=== PATIENT | female | born 1940 | race Hispanic/Latino ===

== ENCOUNTER 2016-10-09 13:59 | Observation (INO) | payer MEDICARE ==
[2016-10-09] MEDS ORDERED: Sodium Chloride 0.9% 500 ML IV ONE (14:31)
--- NOTE | 2016-10-09 14:36 | ED PDOC ---
Arrival/HPI - General Chief Complaint: Abdominal Pain Time Seen by Provider: 10/09/16 14:20 Historian: Patient - History of Present Illness Narrative History of Present Illness (Text): 10/09/16 14:22 Khushboo Sams is a 76 year old female, whose past medical history includes endometriosis, spinal stenosis, and A fib, who presents to the emergency department complaining of worsening lower abdominal pain for 1 week. Patient states that she has had these symptoms intermittently for years but they did not worsen until 1 week ago. Patient also indicates that she experiences associated lower back pain and a significant decrease in appetite. Patient spoke to PMD, Dr. Baig, this morning who directed to patient to emergency department. Patient denies any past abdominal surgeries, nausea, vomiting diarrhea, urinary symptoms, fever, chest pain, shortness of breath, or any other complaint at this time. PMD: Dr. Baig Time/Duration: 1 week Symptom Onset: Gradual Symptom Course: Worsening Severity Level: Mild Activities at Onset: Rest Context: Home Associated Symptoms (Text): 10/09/16 15:11 Chronic abdominal pain for years. Over the last week her lower abdominal pain has become worse. It is now localized in the left lower quadrant. No nausea vomiting or diarrhea. Poor appetite. No fever or chills. No genitourinary symptoms. It radiates into her back. Past Medical History - Provider Review Nursing Documentation Reviewed: Yes - Infectious Disease Hx of Infectious Diseases: None - Tetanus Immunization Tetanus Immunization: Unknown - Cardiac Hx Cardiac Arrhythmia: Yes (afib) Hx Hypertension: Yes Hx Pacemaker: No - Pulmonary Hx Respiratory Disorders: No - Neurological Hx Paralysis: No - HEENT Hx HEENT Disorder: (WEARS RX GLASSES,TONSILLECTOMY) Hx Macular Degeneration: Yes - Renal Hx Renal Disorder: No - Endocrine/Metabolic Hx Hypothyroidism: Yes - Hematological/Oncological Hx Blood Transfusions: No - Integumentary Hx Dermatological Disorder: Yes Hx Melanoma: Yes (HANDS,FACE) - Musculoskeletal/Rheumatological Hx Musculoskeletal Disorders: Yes Hx Spinal Stenosis: Yes - Gastrointestinal Hx Gastrointestinal Disorders: Yes - Genitourinary/Gynecological Hx Genitourinary Disorders: No - Psychiatric Hx Emotional Abuse: No Hx Physical Abuse: No Hx Substance Use: No - Anesthesia Hx Anesthesia: Yes Hx Anesthesia Reactions: No Hx Malignant Hyperthermia: No - Suicidal Assessment Feels Threatened In Home Enviroment: No Family/Social History - Physician Review Nursing Documentation Reviewed: Yes Family/Social History: No Known Family HX Smoking Status: Former Smoker Hx Alcohol Use: No Hx Substance Use: No Hx Substance Use Treatment: No Allergies/Home Meds Allergies/Adverse Reactions: Allergies No Known Allergies Allergy (Verified 10/09/16 14:05) Home Medications: Home Meds Medication Instructions Recorded Confirmed Ezetimibe [Zetia] 10 mg PO DAILY 10/05/11 10/09/16 Warfarin [Coumadin] 5 mg PO DAILY 10/05/11 10/09/16 Vitamin D 2,000 iu PO 2XW 11/17/13 10/09/16 Irbesartan [Avapro] 300 mg PO DAILY 08/18/14 10/09/16 Levothyroxine Sodium [Synthroid] 75 mcg PO DAILY 08/18/14 10/09/16 Review of Systems - Physician Review All systems were reviewed & negative as marked: Yes - Review of Systems Constitutional: absent: Fevers, Night Sweats Eyes: absent: Vision Changes ENT: absent: Hearing Changes Respiratory: absent: SOB, Cough Cardiovascular: absent: Chest Pain Gastrointestinal: Abdominal Pain, Appetite Changes. absent: Diarrhea, Nausea, Vomiting Genitourinary Female: absent: Dysuria, Frequency, Hematuria, Urine Output Changes Musculoskeletal: Back Pain. absent: Arthralgias, Neck Pain Skin: absent: Rash, Pruritis Neurological: absent: Headache, Dizziness Endocrine: absent: Diaphoresis Hemo/Lymphatic: absent: Adenopathy Psychiatric: absent: Depression Physical Exam Vital Signs Reviewed: Yes Vital Signs Temp Pulse Resp BP Pulse Ox 10/09/16 15:03 89 18 158/89 H 98 10/09/16 14:07 97.9 F 97 H 17 166/92 H 99 Temperature: Afebrile Blood Pressure: Hypertensive Pulse: Regular Respiratory Rate: Normal Appearance: Positive for: Well-Appearing, Non-Toxic, Uncomfortable Pain Distress: Mild Mental Status: Positive for: Alert and Oriented X 3 - Systems Exam Head: Present: Atraumatic, Normocephalic Pupils: Present: PERRL Extroacular Muscles: Present: EOMI Conjunctiva: Present: Normal Mouth: Present: Moist Mucous Membranes Pharnyx: No: ERYTHEMA, EXUDATE, TONSILS ENLARGED Neck: Present: Normal Range of Motion Respiratory/Chest: Present: Clear to Auscultation, Good Air Exchange, Decreased Breath Sounds. No: Respiratory Distress, Accessory Muscle Use Cardiovascular: Present: Irregular Rhythm (Irregularly irregular, normal rate) Abdomen: Present: Tenderness (Mild LLQ tenderness). No: Rebound, Guarding Back: Present: Normal Inspection. No: CVA Tenderness, Midline Tenderness Upper Extremity: Present: Normal Inspection. No: Cyanosis, Edema Lower Extremity: Present: Normal Inspection. No: Edema Neurological: Present: GCS=15, CN II-XII Intact, Speech Normal, Motor Func Grossly Intact Skin: Present: Warm, Dry, Normal Color. No: Rashes Psychiatric: Present: Alert, Oriented x 3, Normal Insight, Normal Concentration Medical Decision Making ED Course and Treatment: 10/09/16 14:22 Impression: 76 year old female complaining of lower abdominal pain for 1 week. Plan: -- EKG -- Chest x-ray -- Abdomen and Pelvis CT w/o contrast -- Urinalysis -- Labs -- Pepcid, Toradol, and IV fluids -- Reassess and disposition Prior Visits: Notes and results from previous visits were reviewed. Patient last seen in the ED on 08/18/14 for worsening left ear pain for a month. Patient was discharged home. Progress Notes: 10/09/16 15:12 EKG shows atrial fibrillation rate approximately [address] and T- wave changes and no acute changes 10/09/16 15:52 CT scan of the abdomen and pelvis is read by the radiologist as positive for diverticulitis with no abscess - Lab Interpretations Lab Results: 10/09/16 14:45 10/09/16 14:45 Lab Results 10/09/16 14:45: Sodium 141, Potassium 3.8, Chloride 105, Carbon Dioxide 26, Anion Gap 14, BUN 21, Creatinine 0.9, Est GFR ( Amer) > 60, Est GFR (Non- Af Amer) > 60, Random Glucose 91, Calcium 9.6, Total Bilirubin 1.6 H, AST 30, ALT 36, Alkaline Phosphatase 84, Lactate Dehydrogenase 393, Total Creatine Kinase 69, Troponin I < 0.01, Total Protein 7.9, Albumin 4.6, Globulin 3.3, Albumin/Globulin Ratio 1.4, Amylase 166 H, Lipase 150 10/09/16 14:45: PT 26.2 H, INR 2.43 H, APTT 37.5 H 10/09/16 14:45: WBC 13.2 H D, RBC 5.14, Hgb 14.8, Hct 44.4, MCV 86.4, MCH 28.8, MCHC 33.3, RDW 13.8, Plt Count 264, MPV 10.7, Gran % 83.4 H, Lymph % (Auto) 11.1 L, [place] % (Auto) 4.9, Eos % (Auto) 0.3 L, Baso % (Auto) 0.3, Gran # 10.99 H , Lymph # 1.5, [place] # 0.7 H, Eos # 0.0, Baso # 0.04 I have reviewed the lab results: Yes - RAD Interpretation Radiology Orders: 10/09/16 14:29 ABD & PELVIS W/O PO OR IV CONT [CT] Stat 10/09/16 14:30 CHEST ONE VIEW [RAD] Stat Chest 1 view shows no infiltrate effusion or cardiomegaly Mold 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: ED Physician - Medication Orders Current Medication Orders: Ciprofloxacin (Cipro 400mg/200ml Dsw) 400 mg in 200 mls @ 133.3 mls/hr IVPB STAT STA PRN Reason: Protocol Stop: 10/09/16 17:15 Metronidazole (Flagyl) 500 mg in 100 mls @ 100 mls/hr IVPB STAT STA PRN Reason: Protocol Stop: 10/09/16 16:45 Discontinued Medications Famotidine (Pepcid) 20 mg IVP STAT STA Stop: 10/09/16 14:30 Last Admin: 10/09/16 14:43 Dose: 20 mg Sodium Chloride (Sodium Chloride 0.9%) 500 mls @ 500 mls/hr IV ONCE ONE Stop: 10/09/16 15:30 Last Admin: 10/09/16 14:43 Dose: 500 mls/hr Ketorolac Tromethamine (Toradol) 15 mg IVP STAT STA Stop: 10/09/16 14:30 Last Admin: 10/09/16 14:54 Dose: 15 mg - Scribe Statement The provider has reviewed the documentation as recorded by the Chrissyibe Monserrat Bustamante Provider Scribe Attestation: All medical record entries made by the Scribe were at my direction and personally dictated by me. I have reviewed the chart and agree that the record accurately reflects my personal performance of the history, physical exam, medical decision making, and the department course for this patient. I have also personally directed, reviewed, and agree with the discharge instructions and disposition. Disposition/Present on Arrival - Present on Arrival Any Indicators Present on Arrival: No History of DVT/PE: No History of Uncontrolled Diabetes: No Urinary Catheter: No History of Decub. Ulcer: No History Surgical Site Infection Following: None - Disposition Have Diagnosis and Disposition been Completed?: Yes Diagnosis: Diverticulitis Disposition: HOSPITALIZED Disposition Time: 15:52 Patient Plan: Observation Condition: GOOD Referrals: Mynor Baig MD [Primary Care Provider] - Follow up with primary
[2016-10-09 15:00] LABS: ADD MANUAL DIFF? NO
[2016-10-09 15:11] LABS: BASO # 0.04 K/mm3 (0.0-2.0); BASO % 0.3 % (0.0-3.0); EOS % 0.3 % (1.5-5.0); GRAN # 10.99 (1.4-6.5); GRAN % 83.4 % (50.0-68.0); HEMATOCRIT 44.4 % (36.0-48.0); LYMPH # 1.5 (1.2-3.4); LYMPH % 11.1 % (22.0-35.0); MEAN CELL VOLUME 86.4 fL (80.0-105.0); MEAN CORPUSCULAR HEMOGLOBIN 28.8 pg (25.0-35.0); MEAN CORPUSCULAR HGB CONC 33.3 g/dl (31.0-37.0); MEAN PLATELET VOLUME 10.7 fl (7.0-11.0); MONO # 0.7 (0.1-0.6); MONO % 4.9 % (1.0-6.0); PLATELET COUNT 264 10^3/uL (120.0-450.0); RED CELL DISTRIBUTION WIDTH 13.8 % (11.5-14.5); WHITE BLOOD COUNT 13.2 10^3/ul (4.5-11.0)
[2016-10-09 15:13] LABS: ALB/GLOB RATIO 1.4 (1.1-1.8); ALKALINE PHOSPHATASE 84 U/L (38-133); ALT/SGPT 36 U/L (7-56); AMYLASE 166 U/L (35-125); AST/SGOT 30 U/L (15-39); BILIRUBIN,TOTAL 1.6 mg/dL (0.2-1.3); BLOOD UREA NITROGEN 21 mg/dL (7-21); CALCIUM 9.6 mg/dL (8.4-10.5); CARBON DIOXIDE 26 mmol/L (21-33); CHLORIDE 105 mmol/L (98-107); GFR AFRICAN-AMERICAN > 60; GLUCOSE,RANDOM 91 mg/dL (70-110); LIPASE 150 U/L (23-300); POTASSIUM 3.8 mmol/L (3.6-5.0); SODIUM 141 mmol/L (132-148); TOTAL PROTEIN 7.9 g/dL (5.8-8.3)
[2016-10-09 15:17] LABS: INR 2.43 (0.93-1.08); PARTIAL THROMBOPLASTIN TIME 37.5 Seconds (23.7-30.8)
[2016-10-09 15:25] LABS: TROPONIN I < 0.01 ng/mL
--- NOTE | 2016-10-09 15:43 | CT ---
PROCEDURE: CT Abdomen and Pelvis without intravenous contrast HISTORY: Left lower quadrant pain COMPARISON: 01/10/2014 TECHNIQUE: CT scan of the abdomen and pelvis was performed without administration of oral or intravenous contrast. Coronal and sagittal reformatted images were obtained. Radiation dose: Total exam DLP = 548.76 mGy-cm. This CT exam was performed using one or more of the following dose reduction techniques: Automated exposure control, adjustment of the mA and/or kV according to patient size, and/or use of iterative reconstruction technique. FINDINGS: LOWER THORAX: There is subsegmental atelectasis in the right middle lobe and lingula. There is linear atelectasis/scarring in the left lower lobe. LIVER: The liver is normal in size. No gross lesion or ductal dilatation. GALLBLADDER AND BILE DUCTS: There are no calcified gallstones, wall thickening or pericholecystic fluid. PANCREAS: The pancreas is normal in size. No gross lesion or ductal dilatation. SPLEEN: The spleen is normal in size. ADRENALS: Both adrenal glands are normal in size without discrete nodule. KIDNEYS AND URETERS: Both kidneys are normal in size without hydronephrosis or nephrolithiasis. VASCULATURE: No aortic aneurysm. BOWEL: The small bowel loops are normal in caliber. Again seen is left colonic and sigmoid diverticulosis. There is moderate circumferential mural thickening in the sigmoid colon with significant pericolonic inflammatory changes. There is no evidence of microperforation or abscess. APPENDIX: Normal appendix. PERITONEUM: No free intraperitoneal air. There is moderate free fluid in the pelvis. LYMPH NODES: No enlarged lymph nodes. BLADDER: Unremarkable. REPRODUCTIVE: The uterus is normal in size. There is a calcified fibroid in the posterior wall. There are coarse calcifications in both adnexa. BONES: No acute fracture. Diffuse bone demineralization and multilevel degenerative disc disease. Mild dextroscoliosis in the lumbar spine. OTHER FINDINGS: None. IMPRESSION: Acute sigmoid diverticulitis. No evidence of perforation or abscess. Moderate free fluid in the pelvis. Additional comments as described above.
[2016-10-09] MEDS ORDERED: Ciprofloxacin 400mg/200ml D5W 400 MG/200 ML BAG IVPB STA (15:45)
--- NOTE | 2016-10-09 15:45 | RAD ---
PROCEDURE: CHEST RADIOGRAPH, 1 VIEW HISTORY: ap COMPARISON: 07/30/2013 FINDINGS: LUNGS: The lungs are well inflated and clear. PLEURA: No pneumothorax or pleural fluid seen. CARDIOVASCULAR: Normal. OSSEOUS STRUCTURES: No significant abnormalities. VISUALIZED UPPER ABDOMEN: Normal. OTHER FINDINGS: None. IMPRESSION: No active pulmonary disease.
[2016-10-09] MEDS ORDERED: metroNIDAZOLE IV 500 mg/100 ml 500 MG/100 ML BAG IVPB STA (15:46)
[2016-10-09 16:10] LABS: URINE BILIRUBIN NEGATIVE (NEGATIVE); URINE BLOOD SMALL (NEGATIVE); URINE GLUCOSE (UA) NEGATIVE (NEGATIVE); URINE KETONE TRACE mg/dL (NEGATIVE); URINE LEUKOCYTE ESTERASE NEGATIVE Leu/uL (NEGATIVE); URINE PROTEIN NEGATIVE mg/dL (<30 mg/dL); URINE UROBILINOGEN 0.2 E.U./dL (<1 E.U./dL)
[2016-10-09 16:22] LABS: URINE APPEARANCE CLEAR (CLEAR); URINE COLOR LIGHT YELLOW (YELLOW)
[2016-10-09 16:29] LABS: URINE BACTERIA SMALL (NEG); URINE WBC 0 - 2 /hpf (0-6)
--- NOTE | 2016-10-09 17:00 | CP.PCM.HP ---
<Jeromy Nicholson - Last Filed: 10/09/16 18:16> History of Present Illness - History of Present Illness History of Present Illness: H&P: Dr. Olivia CC: Abdominal Pain 76yo F with PMHx of Endometriosis, Spinal Stenosis, Hypothyroidism, Atrial Fib on Warfarin, Macular Degeneration, HTN, HLD here for evaluation of abdominal pain. Pain started 3 days ago and slowly became worse. Located in the LLQ, lower abdomen and radiates to the right lower back. Associated with decreased appetite. Described as a crampy pain. Not associated with food intake. Has had similar pain in the past. Denies any N/V/D. Denies having any constipation, has regular bowel movements once a day. Denies any changes in stool caliber. No dark , tarry or bloody stool. Denies any chest pain, no SOB. No Headaches. No urinary changes. Denies any fever or chills. Has had similar episodes in the past and was diagnosed with diverticulitis, resolved with antibiotics at the time. No sick contacts. Last colonoscopy done in 2003, showed diverticulosis. Last EGD done in 2003. GI: Has seen Dr. Morris in the past, has recently switched to a new GI as out- patient. Requests Dr. Gonzalez during this admission. PMD: Dr. Baig PMHx: Endometriosis, Spinal Stenosis, Hypothyroidism, Atrial Fib, Macular Degeneration, HTN, HLD PSHx: Tonsilectomy, R breast nodule (benign) Family Hx: HTN Social Hx: Lives at home with daughter in 2 family home. Denies Tobacco, denies ETOH, denies any illicit drugs NKDA Meds: Vit D, Synthroid 75mcg daily, Warfarin 5mg PO daily, Zetia, Avapro Present on Admission - Present on Admission Any Indicators Present on Admission: No Review of Systems - Review of Systems All systems: reviewed and no additional remarkable complaints except - Constitutional Constitutional: absent: Chills, Fever - EENT Eyes: absent: Blurred Vision Ears: absent: Dizziness Nose/Mouth/Throat: absent: Epistaxis - Cardiovascular Cardiovascular: absent: Chest Pain, Diaphoresis, Dyspnea - Respiratory Respiratory: absent: Cough, Dyspnea - Gastrointestinal Gastrointestinal: Abdominal Pain. absent: Change in Bowel Habits, Change in Stool Character, Constipation, Diarrhea, Hematochezia, Melena, Nausea, Vomiting - Genitourinary Genitourinary: absent: Difficulty Urinating, Dysuria, Urinary Incontinence, Urinary Frequency - Musculoskeletal Musculoskeletal: Back Pain - Neurological Neurological: absent: Dizziness, Weakness - Psychiatric Psychiatric: absent: Anxiety, Depression Past Patient History - Infectious Disease Hx of Infectious Diseases: None - Tetanus Immunizations Tetanus Immunization: Unknown - Past Social History Smoking Status: Former Smoker - CARDIAC Hx Cardia Arrhythmia: Yes (afib) Hx Hypertension: Yes Hx Pacemaker: No - PULMONARY Hx Respiratory Disorders: No - NEUROLOGICAL Hx Paralysis: No - HEENT Hx HEENT Problems: (WEARS RX GLASSES,TONSILLECTOMY) Hx Macular Degeneration: Yes - RENAL Hx Chronic Kidney Disease: No - ENDOCRINE/METABOLIC Hx Hypothyroidism: Yes - HEMATOLOGICAL/ONCOLOGICAL Hx Blood Transfusions: No - INTEGUMENTARY Hx Dermatological Problems: Yes Hx Melanoma: Yes (HANDS,FACE) - MUSCULOSKELETAL/RHEUMATOLOGICAL Hx Musculoskeletal Disorders: Yes Hx Spinal Stenosis: Yes - GASTROINTESTINAL Hx Gastrointestinal Disorders: Yes - GENITOURINARY/GYNECOLOGICAL Hx Genitourinary Disorders: No - PSYCHIATRIC Hx Emotional Abuse: No Hx Physical Abuse: No Hx Substance Use: No - SURGICAL HISTORY Hx Surgeries: Yes - ANESTHESIA Hx Anesthesia: Yes Hx Anesthesia Reactions: No Hx Malignant Hyperthermia: No Meds Allergies/Adverse Reactions: Allergies Allergy/AdvReac Type Severity Reaction Status Date / Time No Known Allergies Allergy Verified 10/09/16 14:05 Physical Exam - Constitutional Appears: Well, No Acute Distress - Head Exam Head Exam: ATRAUMATIC, NORMAL INSPECTION, NORMOCEPHALIC - Eye Exam Eye Exam: EOMI, Normal appearance, PERRL. absent: Scleral icterus - ENT Exam ENT Exam: Mucous Membranes Moist - Neck Exam Neck exam: Positive for: Normal Inspection - Respiratory Exam Respiratory Exam: Clear to Auscultation Bilateral, NORMAL BREATHING PATTERN. absent: Accessory Muscle Use, Decreased Breath Sounds, Rales, Rhonchi, Wheezes, Respiratory Distress - Cardiovascular Exam Cardiovascular Exam: Irregular Rhythm, +S1, +S2. absent: JVD - GI/Abdominal Exam GI & Abdominal Exam: Normal Bowel Sounds, Soft, Tenderness (LLQ). absent: Distended, Firm, Guarding, Rebound, Rigid - Extremities Exam Extremities exam: Positive for: normal inspection, pedal pulses present. Negative for: calf tenderness, pedal edema - Back Exam Back exam: NORMAL INSPECTION. absent: CVA tenderness (L), CVA tenderness (R) - Neurological Exam Neurological exam: Alert, Oriented x3 - Psychiatric Exam Psychiatric exam: Normal Affect, Normal Mood - Skin Skin Exam: Dry, Intact, Normal Color, Warm Results - Vital Signs Recent Vital Signs: Last Vital Signs Temp 97.9 F 10/09/16 14:07 Pulse 79 10/09/16 16:46 Resp 18 10/09/16 16:46 BP 155/79 H 10/09/16 16:46 Pulse Ox 98 10/09/16 16:46 - Labs Result Diagrams: 10/09/16 14:45 10/09/16 14:45 Labs: Laboratory Results - last 24 hr 10/09/16 10/09/16 10/09/16 14:45 14:45 14:45 WBC 13.2 H D RBC 5.14 Hgb 14.8 Hct 44.4 MCV 86.4 MCH 28.8 MCHC 33.3 RDW 13.8 Plt Count 264 MPV 10.7 Gran % 83.4 H Lymph % (Auto) 11.1 L [place] % (Auto) 4.9 Eos % (Auto) 0.3 L Baso % (Auto) 0.3 Gran # 10.99 H Lymph # 1.5 [place] # 0.7 H Eos # 0.0 Baso # 0.04 PT 26.2 H INR 2.43 H APTT 37.5 H Sodium 141 Potassium 3.8 Chloride 105 Carbon Dioxide 26 Anion Gap 14 BUN 21 Creatinine 0.9 Est GFR ( Amer) > 60 Est GFR (Non-Af Amer) > 60 Random Glucose 91 Calcium 9.6 Total Bilirubin 1.6 H AST 30 ALT 36 Alkaline Phosphatase 84 Lactate Dehydrogenase 393 Total Creatine Kinase 69 Troponin I < 0.01 Total Protein 7.9 Albumin 4.6 Globulin 3.3 Albumin/Globulin Ratio 1.4 Amylase 166 H Lipase 150 Urine Color Urine Appearance Urine pH Ur Specific [place] Urine Protein Urine Glucose (UA) Urine Ketones Urine Blood Urine Nitrate Urine Bilirubin Urine Urobilinogen Ur Leukocyte Esterase Urine RBC Urine WBC Ur Epithelial Cells Urine Bacteria 10/09/16 15:53 WBC RBC Hgb Hct MCV MCH MCHC RDW Plt Count MPV Gran % Lymph % (Auto) [place] % (Auto) Eos % (Auto) Baso % (Auto) Gran # Lymph # [place] # Eos # Baso # PT INR APTT Sodium Potassium Chloride Carbon Dioxide Anion Gap BUN Creatinine Est GFR ( Amer) Est GFR (Non-Af Amer) Random Glucose Calcium Total Bilirubin AST ALT Alkaline Phosphatase Lactate Dehydrogenase Total Creatine Kinase Troponin I Total Protein Albumin Globulin Albumin/Globulin Ratio Amylase Lipase Urine Color Light yellow Urine Appearance Clear Urine pH 6.0 Ur Specific [place] 1.010 Urine Protein Negative Urine Glucose (UA) Negative Urine Ketones Trace H Urine Blood Small H Urine Nitrate Negative Urine Bilirubin Negative Urine Urobilinogen 0.2 Ur Leukocyte Esterase Negative Urine RBC 2 - 5 Urine WBC 0 - 2 Ur Epithelial Cells 1 - 3 Urine Bacteria Small Assessment & Plan - Assessment and Plan (Free Text) Assessment: 76yo F with PMHx of Endometriosis, spinal stenosis, AFib on warfarin, HTN, Hypothyroidism, HLD, Maccular degeneration, diverticulosis here for acute sigmoid diverticulitis 1. Acute Sigmoid diverticulitis Mild leukocytosis afebrile CT Abd - evidence of acute sigmoid diverticulitis. No plegmon, no free air IV abx: Rocephin, Flagyl Zofran prn Consult GI, Dr. Gonzalez, appreciate recs NPO for now NS @100 Pain management: Tylenol prn, Toradol prn f/u Blood cxs Dietitian referral 2. Hx of A Fib INR theraputic continue home warfarin 5mg Daily 3. Hx of HTN continue home meds Losartan 100mg PO Daily 4. Hx of HLD continue Zetia 5. Hx of Hypothyroid Continue home levothyroxine 6. PPx SCDs Protonix 40mg Daily Discussed case with Dr. Corwin Nicholson PGY1 <Ulices Olivia - Last Filed: 10/10/16 14:54> Results - Vital Signs Recent Vital Signs: Last Vital Signs Temp 98 F 10/10/16 07:58 Pulse 83 10/10/16 07:58 Resp 20 10/10/16 07:58 BP 137/64 10/10/16 07:58 Pulse Ox 97 10/10/16 07:58 - Labs Result Diagrams: 10/10/16 07:15 10/10/16 07:15 Labs: Laboratory Results - last 24 hr 10/10/16 10/10/16 10/10/16 07:15 07:15 07:15 WBC 8.3 D RBC 4.26 Hgb 12.0 Hct 36.2 MCV 85.0 MCH 28.2 MCHC 33.1 RDW 13.6 Plt Count 209 MPV 10.3 PT 36.9 H* INR 3.42 H Sodium 141 Potassium 3.5 L Chloride 111 H Carbon Dioxide 23 Anion Gap 11 BUN 16 Creatinine 0.8 Est GFR ( Amer) > 60 Est GFR (Non-Af Amer) > 60 Random Glucose 85 Calcium 8.8 Attending/Attestation - Attestation I have personally seen and examined this patient.: Yes I have fully participated in the care of the patient.: Yes I have reviewed all pertinent clinical information: Yes Notes (Text): 10/10/16 14:51 Attending note; Patient seen and examined with resident in ER. patient's daughter by the bedside. Patient is alert, awake and oriented. patient is is 76-year-old female with PMHx of chronic abdominal pain, Spinal Stenosis, Hypothyroidism, Atrial Fib on Warfarin, Macular Degeneration, HTN, HLD here for evaluation of abdominal pain. pain is mostly localized in the left lower quadrant. CT consistent with acute sigmoid diverticulitis. Nothing by mouth. Started on IV fluids. Started on IV Rocephin and Flagyl. Pain management with Toradol and Tylenol. GI evaluation requested. A. fib; rate controlled on Coumadin. INR is therapeutic. Case discussed [facility] patient's PMD Dr. Baig in detail. the diagnosis, treatment option discussed with patient in detail.
[2016-10-09] MEDS: Sodium Chloride 0.9% 1,000 ML IV SCH (17:29)
--- NOTE | 2016-10-09 18:48 | CARD ---
APPROVED REPORT EKG Measurement Heart [id number] <Conclusion> Atrial fibrillation Minimal voltage criteria for LVH, may be normal variant Nonspecific T wave abnormality, probably digitalis effect Prolonged QT Abnormal ECG
[2016-10-09 19:08] VITALS: BMI 27.4
[2016-10-09] MEDS ORDERED: Pneumococcal 23-Valent Vaccine IM ONE (19:09)
[2016-10-09] MEDS: metroNIDAZOLE IV 500 mg/100 ml 500 MG/100 ML BAG IVPB SCH (22:17)
[2016-10-10] MEDS: metroNIDAZOLE IV 500 mg/100 ml 500 MG/100 ML BAG IVPB SCH ×2 (05:53→14:08)
[2016-10-10] MEDS ORDERED: Levothyroxine 75 MCG TAB PO SCH (07:30)
[2016-10-10] MEDS ORDERED: Pantoprazole 40 mg EC Tab PO SCH (07:30)
[2016-10-10 07:46] LABS: HEMATOCRIT 36.2 % (36.0-48.0); MEAN CORPUSCULAR HEMOGLOBIN 28.2 pg (25.0-35.0); MEAN CORPUSCULAR HGB CONC 33.1 g/dl (31.0-37.0); MEAN PLATELET VOLUME 10.3 fl (7.0-11.0); RED CELL DISTRIBUTION WIDTH 13.6 % (11.5-14.5); WHITE BLOOD COUNT 8.3 10^3/ul (4.5-11.0)
[2016-10-10 07:48] LABS: INR 3.42 (0.93-1.08)
[2016-10-10 07:53] LABS: BLOOD UREA NITROGEN 16 mg/dL (7-21); CALCIUM 8.8 mg/dL (8.4-10.5); CARBON DIOXIDE 23 mmol/L (21-33); CHLORIDE 111 mmol/L (98-107); GFR AFRICAN-AMERICAN > 60; GLUCOSE,RANDOM 85 mg/dL (70-110); POTASSIUM 3.5 mmol/L (3.6-5.0); SODIUM 141 mmol/L (132-148)
[2016-10-10 07:58] VITALS: PULSE 83; RESP 20; TEMP 98
[2016-10-10] MEDS ORDERED: cefTRIAXone 1 gm 1 GM/100 ML BAG IVPB SCH (10:00)
[2016-10-10] MEDS ORDERED: Potassium Chloride 20 mEq ER Tab PO STA (10:18)
[2016-10-10] MEDS: Sodium Chloride 0.9% 1,000 ML IV SCH (14:10)
[2016-10-10 15:53] VITALS: BP 166/86; O2SAT 98
--- NOTE | 2016-10-10 16:18 | CP.PCM.PN ---
<Homa Newton - Last Filed: 10/10/16 16:11> Subjective - Date & Time of Evaluation Date of Evaluation: 10/10/16 Time of Evaluation: 16:12 - Subjective Subjective: HOSPITALISTS PROGRESS NOTE Pt is seen and examined at bedside. No acute events overnight. Patient states abdominal pain is improving. She tolerated liquid diet for breakfast and lunch. patient denies having any Cp, Sob, N/V, fevers or chills. Objective - Vital Signs/Intake and Output Vital Signs (last 24 hours): Temp Pulse Resp BP Pulse Ox 98 F 83 20 166/86 H 98 10/10/16 15:52 10/10/16 15:52 10/10/16 15:52 10/10/16 15:52 10/10/16 15:52 Intake and Output: 10/10/16 10/10/16 06:59 18:59 Intake Total 0 Balance 0 - Medications Medications: Current Medications Acetaminophen (Tylenol 325mg Tab) 650 mg PO Q4 PRN PRN Reason: Fever >100.4 F Last Admin: 10/09/16 18:32 Dose: 650 mg Cholecalciferol (Vitamin D) 2,000 iu PO 2XW [facility] Last Admin: 10/10/16 10:19 Dose: Not Given Ezetimibe (Zetia) 10 mg PO DAILY [facility] Last Admin: 10/10/16 10:14 Dose: 10 mg Metronidazole (Flagyl) 500 mg in 100 mls @ 100 mls/hr IVPB Q8 DANIEL PRN Reason: Protocol Last Admin: 10/10/16 14:08 Dose: 100 mls/hr Ceftriaxone Sodium (Rocephin 1 Gram Ivpb) 1 gm in 100 mls @ 100 mls/hr IVPB DAILY DANIEL PRN Reason: Protocol Last Admin: 10/10/16 10:13 Dose: 100 mls/hr Sodium Chloride (Sodium Chloride 0.9%) 1,000 mls @ 100 mls/hr IV .Q10H [facility] Last Admin: 10/10/16 14:10 Dose: 100 mls/hr Ketorolac Tromethamine (Toradol) 15 mg IVP Q6 PRN PRN Reason: Pain, severe (8-10) Last Admin: 10/10/16 03:44 Dose: 15 mg Levothyroxine Sodium (Synthroid) 75 mcg PO ACB [facility] Last Admin: 10/10/16 08:30 Dose: 75 mcg Losartan Potassium (Cozaar) 100 mg PO DAILY DANIEL Last Admin: 10/10/16 10:14 Dose: 100 mg Ondansetron HCl (Zofran Inj) 4 mg IVP Q4H PRN PRN Reason: Nausea/Vomiting Pantoprazole Sodium (Protonix Ec Tab) 40 mg PO ACB [facility] Last Admin: 10/10/16 08:30 Dose: 40 mg Warfarin Sodium (Coumadin) 3 mg PO 1800 DANIEL PRN Reason: Protocol - Labs Labs: 10/10/16 07:15 10/10/16 07:15 PT 36.9 Seconds (9.9-11.8) H* 10/10/16 07:15 INR 3.42 (0.93-1.08) H 10/10/16 07:15 APTT 37.5 Seconds (23.7-30.8) H 10/09/16 14:45 - Constitutional Appears: Non-toxic, No Acute Distress - Head Exam Head Exam: ATRAUMATIC - Eye Exam Eye Exam: EOMI - ENT Exam ENT Exam: Mucous Membranes Moist - Respiratory Exam Respiratory Exam: Clear to Ausculation Bilateral. absent: Accessory Muscle Use , Rales, Rhonchi, Wheezes, Respiratory Distress - Cardiovascular Exam Cardiovascular Exam: REGULAR RHYTHM, +S1, +S2. absent: Gallop, Rubs, Murmur - GI/Abdominal Exam GI & Abdominal Exam: Soft, Normal Bowel Sounds. absent: Distended, Firm, Guarding, Rigid, Tenderness - Extremities Exam Extremities Exam: absent: Pedal Edema, Tenderness - Neurological Exam Neurological Exam: Alert, Awake, Oriented x3 - Psychiatric Exam Psychiatric exam: Normal Affect, Normal Mood - Skin Skin Exam: Dry, Intact, Normal Color, Warm Assessment and Plan - Assessment and Plan (Free Text) Assessment: 76yo F with PMHx of Endometriosis, spinal stenosis, AFib on warfarin, HTN, Hypothyroidism, HLD, Maccular degeneration, diverticulosis here for acute sigmoid diverticulitis 1. Acute Sigmoid diverticulitis Patient is afebrile and leukocytosis has improved CT Abd - evidence of acute sigmoid diverticulitis. No plegmon, no free air IV abx: Rocephin, Flagyl Zofran prn Consult GI, Dr. Gonzalez, appreciate recs will advance diet as tolerated NS @100 Pain management: Tylenol prn, Toradol prn f/u Blood cxs Dietitian referral 2. Hx of A Fib INR theraputic continue home warfarin. Will adjust based upon INR 3. Hx of HTN continue home meds Losartan 100mg PO Daily 4. Hx of HLD continue Zetia 5. Hx of Hypothyroid Continue home levothyroxine 6. PPx SCDs Protonix 40mg Daily Discussed case with Dr. Olivia <Ulices Olivia - Last Filed: 10/10/16 17:37> Objective - Vital Signs/Intake and Output Vital Signs (last 24 hours): Temp Pulse Resp BP Pulse Ox 98 F 83 20 166/86 H 98 10/10/16 15:52 10/10/16 15:52 10/10/16 15:52 10/10/16 15:52 10/10/16 15:52 Intake and Output: 10/10/16 10/10/16 06:59 18:59 Intake Total 0 Balance 0 - Medications Medications: Current Medications Acetaminophen (Tylenol 325mg Tab) 650 mg PO Q4 PRN PRN Reason: Fever >100.4 F Last Admin: 10/09/16 18:32 Dose: 650 mg Cholecalciferol (Vitamin D) 2,000 iu PO 2XW [facility] Last Admin: 10/10/16 10:19 Dose: Not Given Ezetimibe (Zetia) 10 mg PO DAILY [facility] Last Admin: 10/10/16 10:14 Dose: 10 mg Metronidazole (Flagyl) 500 mg in 100 mls @ 100 mls/hr IVPB Q8 DANIEL PRN Reason: Protocol Last Admin: 10/10/16 14:08 Dose: 100 mls/hr Ceftriaxone Sodium (Rocephin 1 Gram Ivpb) 1 gm in 100 mls @ 100 mls/hr IVPB DAILY DANIEL PRN Reason: Protocol Last Admin: 10/10/16 10:13 Dose: 100 mls/hr Sodium Chloride (Sodium Chloride 0.9%) 1,000 mls @ 100 mls/hr IV .Q10H [facility] Last Admin: 10/10/16 14:10 Dose: 100 mls/hr Ketorolac Tromethamine (Toradol) 15 mg IVP Q6 PRN PRN Reason: Pain, severe (8-10) Last Admin: 10/10/16 03:44 Dose: 15 mg Levothyroxine Sodium (Synthroid) 75 mcg PO ACB DANIEL Last Admin: 10/10/16 08:30 Dose: 75 mcg Losartan Potassium (Cozaar) 100 mg PO DAILY [facility] Last Admin: 10/10/16 10:14 Dose: 100 mg Ondansetron HCl (Zofran Inj) 4 mg IVP Q4H PRN PRN Reason: Nausea/Vomiting Pantoprazole Sodium (Protonix Ec Tab) 40 mg PO ACB [facility] Last Admin: 10/10/16 08:30 Dose: 40 mg Warfarin Sodium (Coumadin) 3 mg PO 1800 DANIEL PRN Reason: Protocol - Labs Labs: 10/10/16 07:15 10/10/16 07:15 PT 36.9 Seconds (9.9-11.8) H* 10/10/16 07:15 INR 3.42 (0.93-1.08) H 10/10/16 07:15 APTT 37.5 Seconds (23.7-30.8) H 10/09/16 14:45 Attending/Attestation - Attestation I have personally seen and examined this patient.: Yes I have fully participated in the care of the patient.: Yes I have reviewed all pertinent clinical information, including history, physical exam and plan: Yes Notes (Text): 10/10/16 17:36 Attending note; Patient seen and examined with resident. patient's daughter by the bedside. patient is is 76-year-old female with PMHx of chronic abdominal pain, Spinal Stenosis, Hypothyroidism, Atrial Fib on Warfarin, Macular Degeneration, HTN, HLD here for evaluation of abdominal pain. pain is mostly localized in the left lower quadrant. CT consistent with acute sigmoid diverticulitis. abdominal pain is improving. Started on clear liquid diet.. continue IV Rocephin and Flagyl. GI evaluation with Carlos SHEEHAN requested. A. fib; rate controlled on Coumadin. INR is 3.4. Coumadin dosage decreased to 3 mg from 5 mg. follow-up INR tomorrow. the diagnosis, treatment option discussed with patient in detail.
--- NOTE | 2016-10-10 23:07 | CON ---
DATE: 10/10/2016 REQUESTING PHYSICIAN: Dr. Olivia. REASON FOR CONSULTATION: I have been asked to see this 76-year-old female who comes to the hospital with a 1-week history of increasing left lower quadrant abdominal pain. She denies any nausea, vomiting, fevers, chills, pneumaturia or dysuria. CT scan of the abdomen and pelvis performed in the Emergency Room revealed mural thickening with pericolonic inflammation around the sigmoid colon. The patient states that her abdominal pain has somewhat improved in the 24 hours that she has been in the hospital with IV antibiotics. Again, she denies any fevers, chills, nausea or vomiting. PAST MEDICAL HISTORY: Is notable for hypertension, atrial fibrillation on warfarin, hypothyroidism, spinal stenosis, macular degeneration, endometriosis and hyperlipidemia. PAST SURGICAL HISTORY: Is notable for a biopsy of a right breast nodule, tonsillectomy. SOCIAL HISTORY: She denies cigarette smoking or alcohol abuse. She lives at home with her daughter. FAMILY HISTORY: Noncontributory. REVIEW OF SYSTEMS: A 14-point review of systems is notable for left lower quadrant abdominal pain. PHYSICAL EXAMINATION: GENERAL: A well-developed female lying in bed in no acute distress. VITAL SIGNS: Reveal temperature of 98, blood pressure 166/86, heart rate of 83. HEENT: Reveal sclerae to be white, conjunctivae pink. NECK: Supple. CHEST: Reveals lungs to be clear. HEART: Reveals an irregularly irregular rate. ABDOMEN: Soft. There is mild left lower quadrant tenderness especially on deep palpation. There are no palpable mass. EXTREMITIES: Show no edema. LABORATORY DATA: Reveal white blood cell count is down to 8.3, hemoglobin 12. Chemistries reveal potassium of 3.5. IMPRESSION: This is a 76-year-old female with sigmoid diverticulitis without any evidence of perforation or fluid collection or abscess. Her pain has improved. RECOMMENDATIONS: I have reviewed a low residue, low fiber diet with the patient and her daughter who was at the bedside. The patient's diet has been advanced to a low residue diet. If this is tolerated, the patient can be discharged home with p.o. Cipro and Flagyl for 14 days. I have also asked the patient to follow up with me in the office. Kobe Gonzalez MD cc: 79 TT: 10/10/2016 23:06:39 Confirmation # [id number] Dictation # [id number] dn MTDD
--- NOTE | 2016-10-11 12:06 | CP.PCM.DIS ---
Provider - Provider Date of Admission: 10/09/16 15:53 Attending physician: Ulices Olivia MD Primary care physician: Mynor Baig MD Time Spent in preparation of Discharge (in minutes): 35 Hospital Course - Lab Results Lab Results: Micro Results 10/09/16 16:05 Blood-Venous Blood Culture - Preliminary NO GROWTH AFTER 24 HOURS Most Recent Lab Values WBC 8.3 10^3/ul (4.5-11.0) D 10/10/16 07:15 RBC 4.26 10^6/uL (3.5-6.1) 10/10/16 07:15 Hgb 12.0 gm/dL (12.0-16.0) 10/10/16 07:15 Hct 36.2 % (36.0-48.0) 10/10/16 07:15 MCV 85.0 fL (80.0-105.0) 10/10/16 07:15 MCH 28.2 pg (25.0-35.0) 10/10/16 07:15 MCHC 33.1 g/dl (31.0-37.0) 10/10/16 07:15 RDW 13.6 % (11.5-14.5) 10/10/16 07:15 Plt Count 209 10^3/uL (120.0-450.0) 10/10/16 07:15 MPV 10.3 fl (7.0-11.0) 10/10/16 07:15 Gran % 83.4 % (50.0-68.0) H 10/09/16 14:45 Lymph % (Auto) 11.1 % (22.0-35.0) L 10/09/16 14:45 [place] % (Auto) 4.9 % (1.0-6.0) 10/09/16 14:45 Eos % (Auto) 0.3 % (1.5-5.0) L 10/09/16 14:45 Baso % (Auto) 0.3 % (0.0-3.0) 10/09/16 14:45 Gran # 10.99 (1.4-6.5) H 10/09/16 14:45 Lymph # 1.5 (1.2-3.4) 10/09/16 14:45 [place] # 0.7 (0.1-0.6) H 10/09/16 14:45 Eos # 0.0 (0.0-0.7) 10/09/16 14:45 Baso # 0.04 K/mm3 (0.0-2.0) 10/09/16 14:45 PT 36.9 Seconds (9.9-11.8) H* 10/10/16 07:15 INR 3.42 (0.93-1.08) H 10/10/16 07:15 APTT 37.5 Seconds (23.7-30.8) H 10/09/16 14:45 Sodium 141 mmol/L (132-148) 10/10/16 07:15 Potassium 3.5 mmol/L (3.6-5.0) L 10/10/16 07:15 Chloride 111 mmol/L (98-107) H 10/10/16 07:15 Carbon Dioxide 23 mmol/L (21-33) 10/10/16 07:15 Anion Gap 11 (10-20) 10/10/16 07:15 BUN 16 mg/dL (7-21) 10/10/16 07:15 Creatinine 0.8 mg/dL (0.5-1.4) 10/10/16 07:15 Est GFR ( Amer) > 60 10/10/16 07:15 Est GFR (Non-Af Amer) > 60 10/10/16 07:15 Random Glucose 85 mg/dL (70-110) 10/10/16 07:15 Calcium 8.8 mg/dL (8.4-10.5) 10/10/16 07:15 Total Bilirubin 1.6 mg/dL (0.2-1.3) H 10/09/16 14:45 AST 30 U/L (15-39) 10/09/16 14:45 ALT 36 U/L (7-56) 10/09/16 14:45 Alkaline Phosphatase 84 U/L (38-133) 10/09/16 14:45 Lactate Dehydrogenase 393 U/L (333-699) 10/09/16 14:45 Total Creatine Kinase 69 U/L (35-230) 10/09/16 14:45 Troponin I < 0.01 ng/mL 10/09/16 14:45 Total Protein 7.9 g/dL (5.8-8.3) 10/09/16 14:45 Albumin 4.6 g/dL (3.0-4.8) 10/09/16 14:45 Globulin 3.3 gm/dL 10/09/16 14:45 Albumin/Globulin Ratio 1.4 (1.1-1.8) 10/09/16 14:45 Amylase 166 U/L (35-125) H 10/09/16 14:45 Lipase 150 U/L (23-300) 10/09/16 14:45 Urine Color Light yellow (YELLOW) 10/09/16 15:53 Urine Appearance Clear (CLEAR) 10/09/16 15:53 Urine pH 6.0 (4.7-8.0) 10/09/16 15:53 Ur Specific [place] 1.010 (1.005-1.035) 10/09/16 15:53 Urine Protein Negative mg/dL (<30 mg/dL) 10/09/16 15:53 Urine Glucose (UA) Negative mg/dL (NEGATIVE) 10/09/16 15:53 Urine Ketones Trace mg/dL (NEGATIVE) H 10/09/16 15:53 Urine Blood Small (NEGATIVE) H 10/09/16 15:53 Urine Nitrate Negative (NEGATIVE) 10/09/16 15:53 Urine Bilirubin Negative (NEGATIVE) 10/09/16 15:53 Urine Urobilinogen 0.2 E.U./dL (<1 E.U./dL) 10/09/16 15:53 Ur Leukocyte Esterase Negative [place]/uL (NEGATIVE) 10/09/16 15:53 Urine RBC 2 - 5 /hpf (0-2) 10/09/16 15:53 Urine WBC 0 - 2 /hpf (0-6) 10/09/16 15:53 Ur Epithelial Cells 1 - 3 /hpf (0-5) 10/09/16 15:53 Urine Bacteria Small (NEG) 10/09/16 15:53 - Hospital Course Hospital Course: discharge summary for 10/10/16. Patient seen and examined with resident. patient's daughter by the bedside. Patient is is 76-year-old female with PMHx of chronic abdominal pain, Spinal Stenosis, Hypothyroidism, Atrial Fib on Warfarin, Macular Degeneration, HTN, HLD is admitted with acute sigmoid diverticulitis. abdominal pain is improving. Started on clear liquid diet. Advance to soft diet. treated with IV Rocephin and Flagyl. we will discharge home with po Cipro and Flagyl. GI evaluation with DR. Gonzalez appreciated. A. fib; rate controlled on Coumadin. INR is 3.4. Coumadin dosage decreased to 3 mg from 5 mg. follow-up INR as outpatient. 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 Medicare Biller informed. Case discussed with PMD DR. Baig in detail. The patient will follow- Dr. Gonzalez in 1 week. diagnosis; acute diverticulitis Chronic abdominal pain Hypothyroidism A. fib Hypertension Hyperlipidemia Discharge Exam - Head Exam Head Exam: ATRAUMATIC - Eye Exam Eye Exam: Normal appearance - ENT Exam ENT Exam: Mucous Membranes Moist - Respiratory Exam Respiratory Exam: NORMAL BREATHING PATTERN - Cardiovascular Exam Cardiovascular Exam: REGULAR RHYTHM - GI/Abdominal Exam GI & Abdominal Exam: Normal Bowel Sounds, Soft. absent: Rebound, Rigid, Tenderness - Back Exam Back exam: absent: CVA tenderness (L), CVA tenderness (R) - Neurological Exam Neurological exam: Alert - Psychiatric Exam Psychiatric exam: Normal Affect - Skin Skin Exam: Normal Color Discharge Plan - Discharge Medications Prescriptions: Lactobacillus Acidophilus [Acidophilus] 1 cap PO BID #14 cap Ciprofloxacin HCl [Cipro] 500 mg PO BID #14 tablet Metronidazole [Flagyl] 500 mg PO Q8 #21 tablet - Follow Up Plan Condition: GOOD Disposition: HOME/ ROUTINE Instructions: Ciprofloxacin (By mouth), Metronidazole (By mouth), Diverticulitis (DC), Low Fiber Diet (GEN), Acute Abdominal Pain (DC), Diverticulitis Diet (DC) Additional Instructions: Patient is to follow up with PMD, Dr. Baig upon discharge. Patient is to follow up with gastroenteritis, Dr. Gonzalez after discharge. Patient is to continue home medications. She is also discharged on the following medications: Ciprofloxacin, flagyl and lactobacilus. Scripts will be given to patient before discharge. Referrals: Mynor Baig MD [Primary Care Provider] -
== END 2016-10-10 19:00 | disposition home or self-care (01) ==
LOC: ED 13:59 → ERH 15:53 → 5RSO 18:04
PROVIDERS: ADMIT Internal Medicine; ATTEND Internal Medicine
DX: R10.9 Unspecified abdominal pain (principal); M48.00 Spinal stenosis, site unspecified; E03.9 Hypothyroidism, unspecified; I48.91 Unspecified atrial fibrillation; I10 Essential (primary) hypertension; Z79.01 Long term (current) use of anticoagulants; E78.5 Hyperlipidemia, unspecified; N80.9 Endometriosis, unspecified
CPT/HCPCS: 36415; 71010; 74176; 80048; 80053; 81001; 82150; 82550; 83615; 83690; 84484; 85025; 85027; 85610; 85730; 87040; 93005; 96365; 96366; 96367; 96375; 96376; 99284; G0378; J0696; J0744; J1885; J7040

== ENCOUNTER 2017-07-27 09:26 | Emergency (ER) | payer MEDICARE ==
[2017-07-27 09:27] VITALS: BMI 27.4
[2017-07-27 09:46] VITALS: RESP 18; TEMP 97.5; O2SAT 98
[2017-07-27] MEDS ORDERED: Sodium Chloride 0.9% 1,000 ML IV STA (10:02)
[2017-07-27 10:56] LABS: BASO # 0.03 K/mm3 (0.0-2.0); BASO % 0.4 % (0.0-3.0); EOS # 0.1 (0.0-0.7); EOS % 0.7 % (1.5-5.0); GRAN # 6.53 (1.4-6.5); GRAN % 77.4 % (50.0-68.0); HEMOGLOBIN 14.3 g/dL (12.0-16.0); LYMPH # 1.5 (1.2-3.4); LYMPH % 17.3 % (22.0-35.0); MEAN CELL VOLUME 85.3 fl (80.0-105.0); MEAN CORPUSCULAR HEMOGLOBIN 28.8 pg (25.0-35.0); MEAN CORPUSCULAR HGB CONC 33.7 g/dl (31.0-37.0); MEAN PLATELET VOLUME 11.1 fl (7.0-11.0); MONO # 0.4 (0.1-0.6); MONO % 4.2 % (1.0-6.0); RBC 4.97 10^6/uL (3.5-6.1); RED CELL DISTRIBUTION WIDTH 14.1 % (11.5-14.5); WHITE BLOOD COUNT 8.4 10^3/ul (4.5-11.0)
[2017-07-27 11:17] LABS: PROTHROMBIN TIME 49.8 SECONDS (9.4-12.5)
[2017-07-27 11:19] LABS: INR 4.21 (0.93-1.08); PARTIAL THROMBOPLASTIN TIME 57.1 Seconds (25.1-36.5)
[2017-07-27] MEDS ORDERED: Iohexol 350 MG/100 ML VIAL ONE (11:50)
[2017-07-27 12:01] LABS: URINE APPEARANCE SL CLOUDY (CLEAR); URINE BILIRUBIN NEGATIVE (NEGATIVE); URINE BLOOD TRACE-INTACT (NEGATIVE); URINE COLOR YELLOW (YELLOW); URINE GLUCOSE (UA) NEGATIVE (NEGATIVE); URINE LEUKOCYTE ESTERASE LARGE Leu/uL (NEGATIVE); URINE PROTEIN NEGATIVE mg/dL (<30 mg/dL); URINE UROBILINOGEN 0.2 E.U./dL (<1 E.U./dL)
[2017-07-27 12:06] LABS: ALB/GLOB RATIO 1.1 (1.1-1.8); ALBUMIN 4.1 g/dL (3.0-4.8); ALT/SGPT 23 U/L (7-56); AMYLASE 154 U/L (35-125); AST/SGOT 28 U/L (14-36); BLOOD UREA NITROGEN 21 mg/dL (7-21); CALCIUM 9.8 mg/dL (8.4-10.5); GFR AFRICAN-AMERICAN > 60; GFR NON-AFRICAN AMERICAN > 60; LIPASE 196 U/L (23-300)
[2017-07-27 12:06] LABS: URINE AMORPHOUS SEDIMENT FEW; URINE BACTERIA MANY (NEG); URINE WBC 25 - 30 /hpf (0-6)
[2017-07-27 12:17] LABS: TROPONIN I < 0.01 ng/mL
--- NOTE | 2017-07-27 13:05 | CT ---
PROCEDURE: CT Abdomen and Pelvis with contrast HISTORY: LLQ abdominal pain COMPARISON: Noncontrast CT abdomen and pelvis 10/09/2016 TECHNIQUE: Contrast dose: 100 mL Omnipaque 350 Radiation dose: Total exam DLP = 608 mGy-cm. This CT exam was performed using one or more of the following dose reduction techniques: Automated exposure control, adjustment of the mA and/or kV according to patient size, and/or use of iterative reconstruction technique. FINDINGS: LOWER THORAX: Trace discoid atelectasis and/or scarring at both lung bases similar LIVER: Unremarkable. No gross lesion or ductal dilatation. GALLBLADDER AND BILE DUCTS: Unremarkable. PANCREAS: Unremarkable. No gross lesion or ductal dilatation. SPLEEN: Unremarkable. ADRENALS: Unremarkable. No mass. KIDNEYS AND URETERS: Bilateral renal cortical mild atrophy. Probable tiny sub cm left renal cortical cyst. . No hydronephrosis. No solid mass. VASCULATURE: Unremarkable. No aortic aneurysm. BOWEL: Redundant rectosigmoid colon with diverticulosis pericolonic inflammatory changes. The areas of enhancement are compatible with acute/ subacute diverticulitis/ active inflammatory changes. The inflammatory changes associated with diverticulitis blend with the uterus there is a 2.4 cm rim area of apparent enhancement along the right lateral rectosigmoid diverticulitis and blending uterus. Acute/subacute diverticulitis changes are compatible with this. No significant central fluid like density to suggest a more significant abscess here is suggested. However a contiguous very early forming abscess cannot be excluded. No central gas within this focus is identified either. No free air is seen. The blending recto sigmoid redundant redundant colon study with diverticulosis and diverticulitis contiguous uterus impede optimal clarification here. Conceivably even a enhancing fibroid here could simulate this in this 68-year-old female. The left ovary appears with a small follicle appears anterior and left lateral to this. Normal unremarkable right ovarian tiny follicles with dystrophic calcifications are noted as well as atherosclerotic vascular calcifications inferred. No bowel obstruction here. Thi need close surveillance recommended APPENDIX: Normal appendix. PERITONEUM: Left inferior peritoneal inflammatory changes noted. These border the rectosigmoid diverticulosis and diverticulitis changes in the redundant rectosigmoid colon LYMPH NODES: Unremarkable. No enlarged lymph nodes. BLADDER: Unremarkable. REPRODUCTIVE: Unremarkable. BONES: No acute fracture. OTHER FINDINGS: None. IMPRESSION: Rectosigmoid diverticulosis with diverticulitis and probable phlegmonous changes. The blending anatomy at the redundant colon/diverticulosis/ diverticulitis and uterus impede optimal clarification. Enhancement of acute diverticulitis changes including some mural rim enhancement are in the differential. No definitive fluid like central core of abscess or free air or necrotic central gas containing abscess suggested. Phlegmon/diverticulitis redundancy is favored. Continued close surveillance recommended. No obstruction Mild free fluid in the cul-de-sac similar and compatible with inflammatory changes in the vicinity
[2017-07-27] MEDS ORDERED: metroNIDAZOLE IV 500 mg/100 ml 500 MG/100 ML BAG IVPB STA (13:48)
--- NOTE | 2017-07-27 14:22 | ED PDOC ---
Arrival/HPI - General Chief Complaint: Abdominal Pain Time Seen by Provider: 07/27/17 10:02 Historian: Patient - History of Present Illness Narrative History of Present Illness (Text): 07/27/17 14:23 76yo female with PMhx of A-fib, hypertension, hypothyroid, diverticulitis who present with complaint of LLQ abdominal pain x one week. She came to ED today for the worsening pain. Pain is constant and sharp. Notes previous history with her Diverticulitis. Denies nausea, vomiting, diarrhea, constipation, melena, hematemesis, fever, chills, chest pain, urinary symptoms. Past Medical History - Provider Review Nursing Documentation Reviewed: Yes - Infectious Disease Hx of Infectious Diseases: None - Tetanus Immunization Tetanus Immunization: Unknown - Reproductive Menopause: Yes - Cardiac Hx Cardiac Disorders: Yes (cad) Hx Cardiac Arrhythmia: Yes (afib) Hx Hypertension: Yes Hx Pacemaker: No Hx Peripheral Edema: Yes (ble +1 pitting) Other/Comment: varicose veins ble - Pulmonary Hx Respiratory Disorders: No - Neurological Hx Neurological Disorder: Yes (SYNCOPAL EPISODE 07-30-13) Hx Dizziness: Yes - HEENT Hx HEENT Disorder: (WEARS RX GLASSES,TONSILLECTOMY) Hx Cataracts: Yes (b/l no sx) Hx Macular Degeneration: Yes Other/Comment: floaters b/l eyes - Renal Hx Renal Disorder: No - Endocrine/Metabolic Hx Hypothyroidism: Yes - Hematological/Oncological Hx Blood Transfusions: No - Integumentary Hx Dermatological Disorder: Yes Hx Melanoma: Yes (r hand nose r ear) - Musculoskeletal/Rheumatological Hx Musculoskeletal Disorders: Yes Hx Arthritis: Yes Hx Falls: No Hx Spinal Stenosis: Yes Other/Comment: bone spurs behind both knees, left frozen elbow over 5 yrs ago - Gastrointestinal Hx Gastrointestinal Disorders: Yes - Genitourinary/Gynecological Hx Genitourinary Disorders: No Other/Comment: pt denies hx of endometriosis, - Psychiatric Hx Emotional Abuse: No Hx Physical Abuse: No Hx Substance Use: No - Surgical History Other/Comment: d&c when pt was in in her 40's for bleeding and 5 yrs ago due to abd pain caused by fibroids, t&a - Anesthesia Hx Anesthesia: Yes Hx Anesthesia Reactions: No Hx Malignant Hyperthermia: No - Suicidal Assessment Feels Threatened In Home Enviroment: No Family/Social History - Physician Review Nursing Documentation Reviewed: Yes Family/Social History: Unknown Family HX Smoking Status: Former Smoker Hx Alcohol Use: No Hx Substance Use: No Hx Substance Use Treatment: No Allergies/Home Meds Allergies/Adverse Reactions: Allergies No Known Allergies Allergy (Verified 10/09/16 14:05) Home Medications: Home Meds Medication Instructions Recorded Confirmed Warfarin [Coumadin] 5 mg PO DAILY 10/05/11 07/27/17 Irbesartan [Avapro] 300 mg PO DAILY 08/18/14 07/27/17 Ezetimibe [Zetia] 10 mg PO DAILY 10/09/16 07/27/17 Levothyroxine Sodium [Levo-T] 75 mcg PO DAILY 10/09/16 07/27/17 Hyoscyamine Sulfate [Anaspaz] 0.125 mg PO PRN PRN 07/27/17 07/27/17 Review of Systems - Physician Review All systems were reviewed & negative as marked: Yes - Review of Systems Constitutional: Normal Eyes: Normal ENT: Normal Respiratory: Normal Cardiovascular: Normal Gastrointestinal: Abdominal Pain. absent: Constipation, Diarrhea, Nausea, Vomiting, Hematochezia, Hematemesis Genitourinary Female: Normal Musculoskeletal: Normal Skin: Normal Neurological: Normal Endocrine: Normal Hemo/Lymphatic: Normal Psychiatric: Normal Physical Exam Vital Signs Reviewed: Yes Vital Signs Temp Pulse Resp BP Pulse Ox 07/27/17 16:08 72 18 164/94 H 98 07/27/17 09:43 97.5 F L 97 H 18 138/89 98 Temperature: Afebrile Blood Pressure: Normal Pulse: Regular Respiratory Rate: Normal Appearance: Positive for: Well-Appearing, Non-Toxic, Comfortable Pain Distress: None Mental Status: Positive for: Alert and Oriented X 3 - Systems Exam Head: Present: Atraumatic, Normocephalic Pupils: Present: PERRL Extroacular Muscles: Present: EOMI Conjunctiva: Present: Normal Mouth: Present: Moist Mucous Membranes Neck: Present: Normal Range of Motion Respiratory/Chest: Present: Clear to Auscultation, Good Air Exchange. No: Respiratory Distress, Accessory Muscle Use Cardiovascular: Present: Regular Rate and Rhythm, Normal S1, S2. No: Murmurs Abdomen: Present: Tenderness (LLQ abdominal tenderness), Normal Bowel Sounds, Other (soft). No: Distention, Peritoneal Signs, Rebound, Guarding, McBurney's Point Tender, Rovsing's Sign Present Back: Present: Normal Inspection Upper Extremity: Present: Normal Inspection. No: Cyanosis, Edema Lower Extremity: Present: Normal Inspection. No: Edema Neurological: Present: GCS=15, CN II-XII Intact, Speech Normal Skin: Present: Warm, Dry, Normal Color. No: Rashes Psychiatric: Present: Alert, Oriented x 3, Normal Insight, Normal Concentration Medical Decision Making ED Course and Treatment: 07/27/17 19:40 76yo female with h/o diverticulitis present with complaint of LLQ abdominal pain with no other associated symptoms. she was hemodynamically stable in ED. Lab was unremarkable without leukocytosis. Pt have UTI. Abdominal CP IMPRESSION: Rectosigmoid diverticulosis with diverticulitis and probable phlegmonous changes. The blending anatomy at the redundant colon/diverticulosis/ diverticulitis and uterus impede optimal clarification. Enhancement of acute diverticulitis changes including some mural rim enhancement are in the differential. No definitive fluid like central core of abscess or free air or necrotic central gas containing abscess suggested. Phlegmon/diverticulitis redundancy is favored. Continued close surveillance recommended. No obstruction Mild free fluid in the cul-de-sac similar and compatible with inflammatory changes in the vicinity Result was DW both pt and the daughter. She was offered admission for IV abx. Pt refused admission. She requested PO abx. She was given IV flagyl and Bactrim DS (Instead of Cipro which can decrease clearance of Coumadin from pt's system) . she was instructed to return to ED immediately if her pain becomes worse or if she change her mind at anytime. - Lab Interpretations Lab Results: 07/27/17 10:30 07/27/17 10:30 Lab Results 07/27/17 11:53: Urine Color Yellow, Urine Appearance Sl cloudy, Urine pH 6.0, Ur Specific [place] 1.010, Urine Protein Negative, Urine Glucose (UA) Negative, Urine Ketones Negative, Urine Blood Trace-intact H, Urine Nitrate Positive H, Urine Bilirubin Negative, Urine Urobilinogen 0.2, Ur Leukocyte Esterase Large H , Urine RBC 2 - 5, Urine WBC 25 - 30, Ur Epithelial Cells 6 - 8, Amorphous Sediment Few, Urine Bacteria Many 07/27/17 10:30: Sodium 143, Potassium 3.9, Chloride 108 H, Carbon Dioxide 23, Anion Gap 16, BUN 21, Creatinine 0.9, Est GFR ( Amer) > 60, Est GFR (Non- Af Amer) > 60, Random Glucose 92, Calcium 9.8, Total Bilirubin 1.5 H, AST 28, ALT 23, Alkaline Phosphatase 78, Lactate Dehydrogenase 536, Total Creatine Kinase 50, Troponin I < 0.01, Total Protein 7.7, Albumin 4.1, Globulin 3.6, Albumin/Globulin Ratio 1.1, Amylase 154 H, Lipase 196 07/27/17 10:30: PT 49.8 H, INR 4.21 H*, APTT 57.1 H 07/27/17 10:30: WBC 8.4, RBC 4.97, Hgb 14.3, Hct 42.4, MCV 85.3, MCH 28.8, MCHC 33.7, RDW 14.1, Plt Count 325, MPV 11.1 H, Gran % 77.4 H, Lymph % (Auto) 17.3 L , [place] % (Auto) 4.2, Eos % (Auto) 0.7 L, Baso % (Auto) 0.4, Gran # 6.53 H, Lymph # (Auto) 1.5, [place] # (Auto) 0.4, Eos # (Auto) 0.1, Baso # (Auto) 0.03 - RAD Interpretation Radiology Orders: 07/27/17 10:02 ABD & PELVIS IV CONTRAST ONLY [CT] Stat - Medication Orders Current Medication Orders: Discontinued Medications Famotidine (Pepcid) 20 mg IVP STAT STA Stop: 07/27/17 10:03 Last Admin: 07/27/17 10:40 Dose: 20 mg IVP Administration Document 07/27/17 10:40 [facility] (Rec: 07/27/17 10:40 [facility] [id number]) Charges for Administration # of IVP Administrations 1 Sodium Chloride (Sodium Chloride 0.9%) 1,000 mls @ 100 mls/hr IV .Q10H STA Stop: 07/27/17 20:01 Last Admin: 07/27/17 10:39 Dose: 100 mls/hr eMAR Start Stop Document 07/27/17 10:39 [facility] (Rec: 07/27/17 10:40 [facility] [id number]) Intravenous Solution Start Date 03/20/18 Start Time 10:39 Metronidazole (Flagyl) 500 mg in 100 mls @ 100 mls/hr IVPB STAT STA PRN Reason: Protocol Stop: 07/27/17 14:47 Last Admin: 07/27/17 14:25 Dose: 100 mls/hr eMAR Start Stop Document 07/27/17 14:25 DRY END 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 Ulcer: No History Surgical Site Infection Following: CABG - Mediastinitis, None - Disposition Have Diagnosis and Disposition been Completed?: Yes Diagnosis: Diverticulitis, UTI (urinary tract infection) Disposition: HOME/ ROUTINE Disposition Time: 15:30 Patient Plan: Discharge Condition: FAIR Discharge Instructions (ExitCare): Urinary Tract Infections in Adults, Diverticulitis (DC) Additional Instructions: Take medication as directed Follow up with your doctor Return to ED for any new or worsening symptoms Prescriptions: metroNIDAZOLE [Flagyl] 500 mg PO BID #14 tab Sulfamethoxazole/Trimethoprim [Bactrim DS 800 mg-160 mg] 1 tab PO BID #14 tab Referrals: Mynor Baig MD [Primary Care Provider] - Follow up with primary Forms: [employer] ([place])
[2017-07-27] MEDS ORDERED: Tmp-Smz 800 mg-160 mg DS Tab PO STA (15:26)
[2017-07-27 16:10] VITALS: BP 164/94; PULSE 72
--- NOTE | 2017-07-28 11:53 | CARD ---
APPROVED REPORT EKG Measurement Heart [id number] <Conclusion> Atrial fibrillation. Nonspecific ST and T wave abnormality.
== END 2017-07-27 16:11 | disposition home or self-care (01) ==
LOC: ED 09:26
DX: N39.0 Urinary tract infection, site not specified (principal); K57.92 Diverticulitis of intestine, part unspecified, without perforation or abscess without bleeding; I48.91 Unspecified atrial fibrillation; I10 Essential (primary) hypertension; E03.9 Hypothyroidism, unspecified
CPT/HCPCS: 74177; 80053; 81001; 82150; 82550; 83615; 83690; 84484; 85025; 85610; 85730; 87040; 87086; 93005; 96365; 96375; 99283; J7040; Q9967

== ENCOUNTER 2017-08-15 10:39 | Emergency (ER) | payer MEDICARE ==
--- NOTE | 2017-08-15 11:15 | ED PDOC ---
Arrival/HPI - General Time Seen by Provider: 08/15/17 10:46 Historian: Patient, Family (daughter) - History of Present Illness Narrative History of Present Illness (Text): 08/15/17 11:14 This 77 yo female with PMhx of A-fib, hypertension, hypothyroid, diverticulitis , spinal stenosis, chronic back pain, sciatica, who present with complaint of b/ l neck stiffness, and right lower back pain x 4 days. Patient denies sob, cp, abdominal pain, n/v, urinary symptoms, weakness, paresthesias, trauma, heavy lifting, recent travel, /GI incontinence, saddle anesthesias, urinary retention, or sick contact. Time/Duration: Other (see hpi) Quality: Aching Context: Home Past Medical History - Provider Review Nursing Documentation Reviewed: Yes - Infectious Disease Hx of Infectious Diseases: None - Tetanus Immunization Tetanus Immunization: Unknown - Cardiac Hx Cardiac Disorders: Yes (cad) Hx Cardiac Arrhythmia: Yes (afib) Hx Hypertension: Yes Hx Pacemaker: No Hx Peripheral Edema: Yes (ble +1 pitting) Other/Comment: varicose veins ble - Pulmonary Hx Respiratory Disorders: No - Neurological Hx Neurological Disorder: Yes (SYNCOPAL EPISODE 07-30-13) Hx Dizziness: Yes - HEENT Hx HEENT Disorder: (WEARS RX GLASSES,TONSILLECTOMY) Hx Cataracts: Yes (b/l no sx) Hx Macular Degeneration: Yes Other/Comment: floaters b/l eyes - Renal Hx Renal Disorder: No - Endocrine/Metabolic Hx Hypothyroidism: Yes - Hematological/Oncological Hx Blood Transfusions: No - Integumentary Hx Dermatological Disorder: Yes Hx Melanoma: Yes (r hand nose r ear) - Musculoskeletal/Rheumatological Hx Musculoskeletal Disorders: Yes Hx Arthritis: Yes Hx Falls: No Hx Spinal Stenosis: Yes Other/Comment: bone spurs behind both knees, left frozen elbow over 5 yrs ago - Gastrointestinal Hx Gastrointestinal Disorders: Yes - Genitourinary/Gynecological Hx Genitourinary Disorders: No Other/Comment: pt denies hx of endometriosis, - Psychiatric Hx Emotional Abuse: No Hx Physical Abuse: No Hx Substance Use: No - Surgical History Other/Comment: d&c when pt was in in her 40's for bleeding and 5 yrs ago due to abd pain caused by fibroids, t&a - Anesthesia Hx Anesthesia: Yes Hx Anesthesia Reactions: No Hx Malignant Hyperthermia: No - Suicidal Assessment Feels Threatened In Home Enviroment: No Family/Social History - Physician Review Nursing Documentation Reviewed: Yes Family/Social History: Other (noncontributory) Smoking Status: Former Smoker Hx Alcohol Use: No Hx Substance Use: No Hx Substance Use Treatment: No Allergies/Home Meds Allergies/Adverse Reactions: Allergies EGG Adverse Reaction (Verified 08/15/17 11:14) DIARRHEA Home Medications: Home Meds Medication Instructions Recorded Confirmed Warfarin [Coumadin] 5 mg PO DAILY 10/05/11 08/15/17 Irbesartan [Avapro] 300 mg PO DAILY 08/18/14 08/15/17 Ezetimibe [Zetia] 10 mg PO DAILY 10/09/16 08/15/17 Levothyroxine Sodium [Levo-T] 75 mcg PO DAILY 10/09/16 08/15/17 Hyoscyamine Sulfate [Anaspaz] 0.125 mg PO PRN PRN 07/27/17 08/15/17 Review of Systems - Review of Systems Constitutional: Normal. absent: Fatigue, Weight Change, Fevers Eyes: Normal. absent: Photophobia ENT: Normal. absent: Sore Throat Respiratory: Normal. absent: SOB, Cough Cardiovascular: Normal Gastrointestinal: Normal. absent: Abdominal Pain, Nausea, Vomiting Genitourinary Female: Normal. absent: Dysuria, Frequency, Hematuria, Vaginal Bleeding, Vaginal Discharge Musculoskeletal: Back Pain, Neck Pain ((+) stiffness). absent: Myalgias Skin: Normal. absent: Rash Neurological: Normal. absent: Headache, Dizziness, Focal Weakness, Gait Changes , Speech Changes, Facial Droop, Disequilibrium, Seizure Endocrine: Normal Hemo/Lymphatic: Normal Psychiatric: Normal Physical Exam Vital Signs Temp Pulse Resp BP Pulse Ox 08/15/17 14:52 86 18 153/84 H 100 08/15/17 11:14 97.6 F 95 H 18 164/101 H 99 Temperature: Afebrile Blood Pressure: Hypertensive Pulse: Regular Respiratory Rate: Normal Appearance: Positive for: Well-Appearing, Non-Toxic, Comfortable Pain Distress: None Mental Status: Positive for: Alert and Oriented X 3 - Systems Exam Head: Present: Atraumatic, Normocephalic Pupils: Present: PERRL Extroacular Muscles: Present: EOMI Conjunctiva: Present: Normal Mouth: Present: Moist Mucous Membranes Neck: Present: MIDLINE TENDERNESS, Trachea Midline, Other ((+) mild b/l trapezium muscle tensrness and stiffness). No: Paraspinal Tenderness Respiratory/Chest: Present: Clear to Auscultation, Good Air Exchange. No: Respiratory Distress, Accessory Muscle Use Cardiovascular: Present: Regular Rate and Rhythm, Normal S1, S2. No: Murmurs Abdomen: No: Tenderness, Distention, Peritoneal Signs, Rebound, Guarding Back: Present: Normal Inspection, Paraspinal Tenderness (mild right parevertebral tenderness. No vertebral point tendernes. No vertebral step off. No skin rash). No: CVA Tenderness, Midline Tenderness Upper Extremity: Present: Normal Inspection. No: Cyanosis, Edema Lower Extremity: Present: Normal Inspection. No: Edema Neurological: Present: GCS=15, CN II-XII Intact, Speech Normal, Motor Func Grossly Intact, Normal Sensory Function, Normal Cerebellar Funct, Gait Normal, Memory Normal Skin: Present: Warm, Dry, Normal Color. No: Rashes Psychiatric: Present: Alert, Oriented x 3, Normal Insight, Normal Concentration Medical Decision Making ED Course and Treatment: 08/15/17 14:43 Re-evaluation. Patient feels better. Discussed results and plan with patient who expresses understanding. All questions answered and there is agreement with the plan to discharge home with instructions. Patient stable for discharge. Return if symptoms persist or worsen. Patient was recommended to f/u neurologist and orthopedist for chronic back pain. To take medication at bedtime. To return to emergency if symptoms worsen. Patient was recommended to avoid driving or operating machinery when taking pain medication and Valium. Re-evaluation Time: 14:44 Reassessment Condition: Re-examined, Improved - Lab Interpretations Microbiology Results: Microbiology Results 08/15/17 14:08 Urine,Clean Catch Urine Culture - Final No Growth (<1,000 CFU/ML) Lab Results: 08/15/17 11:37 08/15/17 11:37 Lab Results 08/15/17 14:08: Urine Color Yellow, Urine Appearance Clear, Urine pH 6.0, Ur Specific [place] 1.010, Urine Protein Trace H, Urine Glucose (UA) Negative, Urine Ketones Negative, Urine Blood Small H, Urine Nitrate Negative, Urine Bilirubin Negative, Urine Urobilinogen 0.2, Ur Leukocyte Esterase Trace H, Urine RBC 0 - 2, Urine WBC 1 - 3, Ur Epithelial Cells 1 - 3, Urine Bacteria Few 08/15/17 11:37: PT 20.0 H, INR 1.72 H, APTT 37.6 H 08/15/17 11:37: Sodium 143, Potassium 4.1, Chloride 106, Carbon Dioxide 25, Anion Gap 17, BUN 17, Creatinine 0.8, Est GFR ( Amer) > 60, Est GFR (Non- Af Amer) > 60, Random Glucose 112 H, Calcium 10.1, Total Bilirubin 1.3, AST 28, ALT 36, Alkaline Phosphatase 77, Total Protein 8.0, Albumin 4.1, Globulin 3.9, Albumin/Globulin Ratio 1.1 08/15/17 11:37: WBC 9.7, RBC 4.63, Hgb 13.3, Hct 39.8, MCV 86.0, MCH 28.7, MCHC 33.4, RDW 13.3, Plt Count 290, MPV 10.7, Gran % 77.8 H, Lymph % (Auto) 16.0 L, [place] % (Auto) 5.7, Eos % (Auto) 0.3 L, Baso % (Auto) 0.2, Gran # 7.51 H, Lymph # (Auto) 1.6, [place] # (Auto) 0.6, Eos # (Auto) 0.0, Baso # (Auto) 0.02 I have reviewed the lab results: Yes Interpretation: No clinic. lab abnormalty - Medication Orders Current Medication Orders: Discontinued Medications Diazepam (Valium) 2 mg PO ONCE ONE PRN Reason: Protocol Stop: 08/15/17 11:17 Last Admin: 08/15/17 11:28 Dose: 2 mg Sodium Chloride (Sodium Chloride 0.9%) 500 mls @ 999 mls/hr IV .Q31M STA Stop: 08/15/17 13:44 Last Admin: 08/15/17 13:15 Dose: 999 mls/hr eMAR Start Stop Document 08/15/17 13:15 GMD (Rec: 08/15/17 13:15 GMD [id number]) Intravenous Solution Start Date 08/15/17 Start Time 13:15 End Date 08/15/17 End time 13:45 Total Infusion Time 30 Tramadol/Acetaminophen (Ultracet 37.5/325 Mg) 1 tab PO STAT STA Stop: 08/15/17 11:29 Last Admin: 08/15/17 11:37 Dose: 1 tab MAR Pain Assessment Document 08/15/17 11:37 GMD (Rec: 08/15/17 11:38 GMD [id number]) Pain Reassessment Is this a pain reassessment? No Presence of Pain Presence of Pain Yes Disposition/Present on Arrival - Present on Arrival Any Indicators Present on Arrival: No History of DVT/PE: No History of Uncontrolled Diabetes: No Urinary Catheter: No History Surgical Site Infection Following: CABG - Mediastinitis, None - Disposition Have Diagnosis and Disposition been Completed?: Yes Diagnosis: Chronic radicular pain of lower back, Neck pain Disposition: HOME/ ROUTINE Disposition Time: 14:44 Patient Plan: Discharge Condition: GOOD Additional Instructions: Call private doctor for follow up visit in 1-2 days. Also make sure to f/u Dr. Timmons GI doctor for your appointment. Take medication as instructed. Return to emergency if new symptoms develop. Call private pain management doctor . DO NOT DRIVE OR OPERATE MACHINERY IF YOU TAKE TYLENOL WITH CODEINE OR VALIUM FOR AT LEAST 12 HOURS Prescriptions: Acetaminophen with Codeine [Tylenol with Codeine #3 Tablet] 1 each PO Q6H PRN # 10 tablet PRN Reason: Pain, Severe (8-10) Cephalexin [Keflex] 500 mg PO BID #10 capsule Diazepam [Valium] 2 mg PO DAILY #5 tablet Referrals: Mynor Baig MD [Staff Provider] - Follow up with primary Forms: [email or web address] ([place])
[2017-08-15 11:16] VITALS: RESP 18; TEMP 97.6; BMI 27.3
[2017-08-15] MEDS ORDERED: TraMADol/Apap 37.5/325 mg Tab PO STA (11:28)
[2017-08-15 11:41] LABS: BASO # 0.02 K/mm3 (0.0-2.0); BASO % 0.2 % (0.0-3.0); EOS % 0.3 % (1.5-5.0); GRAN # 7.51 (1.4-6.5); GRAN % 77.8 % (50.0-68.0); HEMOGLOBIN 13.3 g/dL (12.0-16.0); LYMPH # 1.6 (1.2-3.4); MEAN CORPUSCULAR HEMOGLOBIN 28.7 pg (25.0-35.0); MEAN CORPUSCULAR HGB CONC 33.4 g/dl (31.0-37.0); MEAN PLATELET VOLUME 10.7 fl (7.0-11.0); MONO # 0.6 (0.1-0.6); MONO % 5.7 % (1.0-6.0); RBC 4.63 10^6/uL (3.5-6.1); RED CELL DISTRIBUTION WIDTH 13.3 % (11.5-14.5); WHITE BLOOD COUNT 9.7 10^3/ul (4.5-11.0)
[2017-08-15 11:52] LABS: INR 1.72 (0.93-1.08); PARTIAL THROMBOPLASTIN TIME 37.6 Seconds (25.1-36.5)
[2017-08-15 12:33] LABS: ALBUMIN 4.1 g/dL (3.0-4.8); AST/SGOT 28 U/L (14-36); BLOOD UREA NITROGEN 17 mg/dL (7-21); CALCIUM 10.1 mg/dL (8.4-10.5); GFR AFRICAN-AMERICAN > 60; GFR NON-AFRICAN AMERICAN > 60
[2017-08-15 12:37] LABS: ALB/GLOB RATIO 1.1 (1.1-1.8); ALT/SGPT 36 U/L (7-56)
[2017-08-15] MEDS ORDERED: Sodium Chloride 0.9% 500 ML IV STA (13:14)
[2017-08-15 14:11] LABS: URINE BILIRUBIN NEGATIVE (NEGATIVE); URINE BLOOD SMALL (NEGATIVE); URINE GLUCOSE (UA) NEGATIVE (NEGATIVE); URINE LEUKOCYTE ESTERASE TRACE Leu/uL (NEGATIVE); URINE PROTEIN TRACE mg/dL (<30 mg/dL); URINE UROBILINOGEN 0.2 E.U./dL (<1 E.U./dL)
[2017-08-15 14:13] LABS: URINE APPEARANCE CLEAR (CLEAR); URINE COLOR YELLOW (YELLOW)
[2017-08-15 14:25] LABS: URINE BACTERIA FEW (NEG); URINE RBC 0 - 2 /hpf (0-2)
[2017-08-15 14:53] VITALS: BP 153/84; PULSE 86; O2SAT 100
== END 2017-08-15 15:09 | disposition home or self-care (01) ==
LOC: ED 10:39
DX: M54.2 Cervicalgia (principal); M54.16 Radiculopathy, lumbar region; I48.91 Unspecified atrial fibrillation; I10 Essential (primary) hypertension; Z87.891 Personal history of nicotine dependence
CPT/HCPCS: 80053; 81001; 85025; 85610; 85730; 87086; 99284; J7040